=== PATIENT | female | born 1990 | race Caucasian/White ===

== ENCOUNTER 2022-05-10 05:12 | Inpatient (IN) ==
[2022-05-10 05:35] LABS: BILIRUBIN,URINE NEGATIVE (NEGATIVE); BLOOD/HEMOGLOBIN,URINE 3+ (NEGATIVE); GLUCOSE, URINE NEGATIVE (NEGATIVE); KETONES,URINE 3+ (NEGATIVE); LEUKOCYTE ESTERASE ,URINE 1+ (NEGATIVE); NITRITES,URINE NEGATIVE (NEGATIVE); PROTEIN,URINE 1+ (NEGATIVE); UROBILINOGEN,URINE NORMAL (NORMAL)
[2022-05-10 05:36] LABS: APPEARANCE,URINE CLEAR (CLEAR); COLOR,URINE YELLOW (YELLOW)
[2022-05-10 05:43] LABS: BACTERIA,URINE 1+ /HPF (NEGATIVE); SQUAMOUS EPITHELIAL CELL,UR FEW /HPF (NEGATIVE)
[2022-05-10 05:44] VITALS: BMI 31.6
[2022-05-10 05:44] LABS: AMNISURE ROM TEST NO MEMBRANES RUPTURE (NO RUPTURE)
[2022-05-10] MEDS ORDERED: D5 1/2 NS 1,000 ML 1,000 ML IV ONE (05:46)
[2022-05-10] MEDS ORDERED: D5 1/2 NS 1,000 ML 1,000 ML IV SCH ×2 (06:00→08:00)
[2022-05-10 06:12] LABS: BASOPHILS # (AUTO) 0.1 X10^3/uL (0.0-0.1); BASOPHILS % (AUTO) 0.7 % (0.2-1.0); HEMATOCRIT 31.5 % (36.0-47.0); HEMOGLOBIN 10.4 g/dL (12.0-16.0); LYMPHOCYTES # (AUTO) 1.8 X10^3/uL (1.3-2.9); LYMPHOCYTES % (AUTO) 13.5 % (21.0-51.0); MEAN CORPUSCULAR HEMOGLOBIN 26.6 pg (27.0-34.0); MEAN CORPUSCULAR HGB CONC 33.1 g/dL (33.0-35.0); MEAN CORPUSCULAR VOLUME 80.3 fL (80.0-100.0); MEAN PLATELET VOLUME 11.2 fL (7.4-11.0); MONOCYTES # (AUTO) 0.7 x10^3/uL (0.3-0.8); MONOCYTES % (AUTO) 4.8 % (0.0-13.0); RED BLOOD COUNT 3.92 X10^6/uL (3.5-5.4); RED CELL DISTRIBUTION WIDTH 13.6 % (11.6-16.5); WHITE BLOOD COUNT 13.6 X10^3/uL (3.6-10.0)
[2022-05-10 06:20] LABS: ALANINE AMINOTRANSFERASE 23 Units/L (12-78); ALBUMIN 2.7 g/dL (3.4-5.0); ALKALINE PHOSPHATASE 135 Units/L (46-116); ASPARTATE AMINO TRANSFERASE 24 Units/L (15-37); BLOOD UREA NITROGEN 7 mg/dL (7-18); CALCIUM 8.1 mg/dL (8.5-10.1); CARBON DIOXIDE 22.6 mmol/L (21-32); CHLORIDE 104 mmol/L (98-107); COR CA(FOR HYPOALB) 9.1 mg/dL (8.5-10.1); CREATININE 0.74 mg/dL (0.55-1.02); SODIUM 136 mmol/L (136-145); TOTAL PROTEIN 6.6 g/dL (6.4-8.2); eGFR NON BLACK RACES > 60 (>60)
[2022-05-10] MEDS ORDERED: ZOFRAN INJ 4 MG VIAL ONE (06:28)
[2022-05-10] MEDS ORDERED: D5 LR + PITOCIN 10 UNITS/L 10 UNITS/1,000 ML BAG IV PRN (07:00)
[2022-05-10] MEDS ORDERED: ZOFRAN INJ 4 MG VIAL IVP ONE (07:00)
[2022-05-10] MEDS ORDERED: PITOCIN ONE (07:06)
[2022-05-10] MEDS ORDERED: D5 1/2 NS 1,000 mL + PITOCIN 20 UNITS/L IV 20 UNITS/1,000 ML BAG IV ONE (07:07)
[2022-05-10] MEDS ORDERED: D5 LR + PITOCIN 10 UNITS/L 10 UNITS/1,000 ML BAG IV ONE (07:07)
[2022-05-10] MEDS ORDERED: PITOCIN IVP ONE (07:47)
[2022-05-10] MEDS ORDERED: BETADINE SOLN ONE ×2 (07:53→11:31)
[2022-05-10] MEDS ORDERED: XYLOCAINE 1 % (PLAIN) ONE (07:53)
[2022-05-10] MEDS ORDERED: STADOL INJ IVP PRN (07:54)
[2022-05-10] MEDS ORDERED: PHENERGAN INJ 25 MG IM PRN ×2 (10:55→12:18)
[2022-05-10] MEDS ORDERED: MOTRIN TAB 800 MG PO PRN ×2 (10:55→13:09)
[2022-05-10] MEDS ORDERED: STADOL INJ ONE (11:05)
[2022-05-10] MEDS ORDERED: NS 100 ML IV 100 ML ONE ×2 (11:09→11:19)
[2022-05-10] MEDS ORDERED: ZITHROMAX INJ 500 MG VIAL IV ONE (11:09)
[2022-05-10] MEDS ORDERED: LR 1,000 ML IV 1,000 ML IV ONE (11:19)
[2022-05-10] MEDS ORDERED: ANCEF VIAL 1 GRAM ONE (11:21)
[2022-05-10] MEDS ORDERED: VERSED ONE (11:25)
[2022-05-10] MEDS ORDERED: DIPRIVAN VIAL 20 ML ONE (11:26)
[2022-05-10] MEDS ORDERED: FENTANYL VIAL INJ 100 mcg ONE (11:26)
[2022-05-10] MEDS ORDERED: NORMODYNE INJ 20 MG VIAL ONE (11:26)
[2022-05-10] MEDS ORDERED: ZEMURON 100 MG VIAL ONE (11:33)
[2022-05-10] MEDS ORDERED: QUELICIN (OR ANECTINE) ONE (11:33)
[2022-05-10] MEDS ORDERED: HEMABATE IM ONE (11:34)
[2022-05-10] MEDS ORDERED: SUPRANE ONE (11:42)
[2022-05-10] MEDS ORDERED: BRIDION ONE (12:07)
[2022-05-10] MEDS ORDERED: DILAUDID INJ IVP PRN (12:18)
[2022-05-10] MEDS ORDERED: BARHEMSYS INJ IVP PRN (12:18)
[2022-05-10] MEDS ORDERED: REGLAN INJ 10 MG VIAL IVP PRN (12:18)
[2022-05-10] MEDS ORDERED: ZOFRAN INJ 4 MG VIAL IVP PRN (12:18)
[2022-05-10] MEDS ORDERED: BENADRYL INJ 50 MG VIAL IVP PRN (12:18)
[2022-05-10 13:05] LABS: HEMATOCRIT 23.5 % (36.0-47.0)
[2022-05-10 13:08] LABS: HEMOGLOBIN 7.7 g/dL (12.0-16.0)
[2022-05-10] MEDS ORDERED: AMBIEN PO PRN (13:09)
[2022-05-10] MEDS ORDERED: DERMOPLAST PAIN RELIEF SPRAY TOP PRN (13:09)
[2022-05-10] MEDS ORDERED: MILK OF MAGNESIA PO PRN (13:09)
[2022-05-10] MEDS ORDERED: CYTOTEC ONE (13:23)
[2022-05-10] MEDS ORDERED: METHERGINE ONE (13:23)
[2022-05-10] MEDS ORDERED: CYTOTEC PO ONE (13:27)
[2022-05-10] MEDS ORDERED: METHERGINE IM ONE (13:27)
[2022-05-10] MEDS: D5 1/2 NS 1,000 ML 1,000 ML with PITOCIN 20 UNITS IV SCH ×4 (14:12→21:24)
[2022-05-10] MEDS ORDERED: NS 250 ML IV 250 ML IV ONE (15:30)
[2022-05-10 20:41] LABS: HEMATOCRIT 23.6 % (36.0-47.0); HEMOGLOBIN 7.9 g/dL (12.0-16.0)
[2022-05-11] MEDS: D5 1/2 NS 1,000 ML 1,000 ML with PITOCIN 20 UNITS IV SCH ×2 (00:15)
[2022-05-11 04:45] LABS: HEMOGLOBIN 7.5 g/dL (12.0-16.0)
[2022-05-11 04:52] LABS: HEMATOCRIT 21.9 % (36.0-47.0)
--- NOTE | 2022-05-11 07:42 | NOTE.PROOB ---
progress Note OB- Subjective Data Subjective: No complaints, decreased lochia. Tolerating regular diet. No N/V. Ambulating well. No dysuria. Objective Data Result Diagrams: 05/11/22 04:22 05/10/22 05:40 Objective Data: CV= RRR no MRG Lungs=CTA Bilaterally Abd=(+) BS, soft, NTND, Fundus firm/NT/ at 2 cm below umbilicus. Ext=no edema, NT, no cords Assessment Assessment: stable Plan (1) (spontaneous vaginal delivery): Plan: The pt is asking for an early d/c. She is asymptomatic from her anemia and has been walking in her room.
[2022-05-11] MEDS ORDERED: PRENATAL PLUS PO SCH (09:00)
[2022-05-11 14:44] VITALS: BP 128/66
== END 2022-05-11 16:00 | disposition home or self-care (01) | DRG 807 ==
LOC: ER 05:15 → LD 06:28 → MED/SURG 13:04
PROVIDERS: ADMIT Obstetrics & Gynecology; ATTEND Obstetrics & Gynecology
DX: Z37.0 Single live birth; O43.213 Placenta accreta, third trimester; O70.1 Second degree perineal laceration during delivery; Z20.822 Contact with and (suspected) exposure to COVID-19; O26.893 Other specified pregnancy related conditions, third trimester; Z3A.38 38 weeks gestation of pregnancy